=== PATIENT | male | born 1960 | race Caucasian/White ===

== ENCOUNTER → 2024-03-18 | Outpatient (CLI) | payer OTHER ==
[~2024-03-18] VITALS: Ht 172.7 cm; Wt 125.9 kg
[2024-03-18] VITALS (10 sets, daily range): BP systolic 117–142; BP diastolic 81–98; PULSE 80–107; TEMP 97.9
[~2024-03-18] MED LIST: CRESTOR20 MG PO; NORVASC 5MG5 MG/TAB PO; TAPAZOLE5 MG PO
[2024-03-18 09:01] LABS: PROTHROMBIN TIME 11.4 SECONDS (9.7-12.8)
--- NOTE | 2024-03-18 09:50 | NUR ---
Pt to ct per wheelchair. Pt up on ct table in supine position. Monitors applied and O2 on at 2l/nc.
--- NOTE | 2024-03-18 10:11 | NUR ---
Specimens obtained and placed in formalin by Dr Aguilera. Specimen labeled.
== END ==
LOC: COL.RAD 08:18
PROVIDERS: Radiology Diagnostic Radiology
DX: K76.0 Fatty (change of) liver, not elsewhere classified (principal)
CPT/HCPCS: 32108